=== PATIENT | male | born 1980 ===

== ENCOUNTER 2020-02-17 06:00 | Outpatient (RCR) | payer MEDICARE, MEDICAID, SELFPAY | END 2020-03-12 23:59 | disposition home or self-care (01) | LOC: SST 06:00 | PROVIDERS: Referring Provider Family Medicine; Visit Provider Family Medicine | DX: R41.841 Cognitive communication deficit (principal); R47.1 Dysarthria and anarthria; Z87.820 Personal history of traumatic brain injury | CPT/HCPCS: 92607; 92608 ==